=== PATIENT | male | born 1960 | race African-American/Black ===

== ENCOUNTER 2023-08-24 09:11 | Emergency (ER) | payer MEDICARE, MEDICAID ==
[~2023-08-24] VITALS: Ht 172.7 cm; Wt 73.0 kg
[2023-08-24 09:25] VITALS: TEMP 98.3
[2023-08-24] MEDS: ALBUTEROL (0.083%) 2.5MG/3ML NEB HHN ONE (10:39)
[2023-08-24] MEDS: IPRATROPIUM/ALBUTEROL 0.5-3(2.5)MG/3ML NEB HHN ONE (10:39)
[2023-08-24] MEDS: SODIUM CHLORIDE 0.9% 1,000 ML IV ONE (10:50)
[2023-08-24] MEDS: METHYLPREDNISOLONE SOD SUCC 125MG/2ML (ACT-O-VIAL) IV ONE (10:50)
[2023-08-24 10:59] LABS: ALANINE AMINOTRANSFERASE 51 IU/L (10-49); ALBUMIN 4.3 g/dL (3.2-4.8); ASPARTATE AMINOTRANSFERASE 58 IU/L (<34); BILIRUBIN TOTAL 0.6 mg/dL (0.1-1.0); CALCIUM 9.3 mg/dL (8.7-10.4); CARBON DIOXIDE 27 mEq/L (21-32); CHLORIDE 106 mEq/L (98-107); CREATININE 1.1 mg/dL (0.6-1.3); GLUCOSE 117 mg/dL (70-105); POTASSIUM 3.8 mEq/L (3.5-5.1); PROTEIN TOTAL 7.3 g/dL (6.0-8.3); SODIUM 142 mEq/L (136-145); UREA NITROGEN BLOOD 23 mg/dL (9-23)
[2023-08-24 11:01] LABS: BASOPHILS % 0.7 % (0.0-2.0); HEMATOCRIT. 43.7 % (42.0-52.0); HEMOGLOBIN. 14.5 g/dL (14.0-18.0); LYMPHOCYTES % 30.9 % (20.0-50.0); MEAN CORPUSCULAR HEMOGLOBIN 31.4 pg (28.0-32.0); MEAN CORPUSCULAR HGB CONC 33.1 g/dL (31.0-37.0); MEAN CORPUSCULAR VOLUME 94.9 fL (80.0-94.0); MEAN PLATELET VOLUME 7.8 fl (7.4-10.4); MONOCYTES % 10.1 % (2.0-8.0); NEUTROPHILS % 54.3 % (40.0-76.0); PLATELET 171 x1000/uL (130-400); RED CELL DISTRIBUTION WIDTH 14.3 % (11.6-14.6); TROPONIN I HIGH SENSITIVITY < 4 ng/L (3.0-53); WHITE BLOOD COUNT 6.4 x1000/uL (4.5-11.0)
[2023-08-24 11:40] VITALS: PULSE 65; RESP 12; O2SAT 97
[2023-08-24] MEDS ORDERED: ALBU6.7H15 INH (13:15)
[2023-08-24] MEDS ORDERED: AZIT250T12 MT (13:15)
[2023-08-24] MEDS ORDERED: P50 MT (13:15)
[2023-08-24 14:06] VITALS: BP 126/75; PULSE 75; RESP 14
== END 2023-08-24 15:05 | disposition home or self-care (01) ==
LOC: ER 10:41 → CANBEDREQ 13:35 → ER 15:05
DX: R05.9 Cough, unspecified (principal); R06.02 Shortness of breath; F17.210 Nicotine dependence, cigarettes, uncomplicated
CPT/HCPCS: 99285; 96374; 96361; 71045; 80053; 83880; 85025; 84484; 36415; 93005; 94644; J2930; J7030